=== PATIENT | female | born 1985 | race Caucasian/White ===

== ENCOUNTER → 2018-06-15 13:22 | Outpatient (CLI) | payer OTHER, MEDICAID, SELFPAY ==
--- NOTE | 2018-06-15 | DI.US.S_ITS ---
ULTRASOUND OF LEFT BREAST: 06/15/2018 CLINICAL: Palpable left breast lump x 6 weeks. No prior exams were available for comparison. Color flow and real-time ultrasound of the left breast were performed on the areas of interest. There is a 1.3 cm x 1 cm x 1.3 cm oval mass with a lobulated and indistinct margin in the left breast at 12 o'clock anterior depth. This oval mass is hypoechoic. This correlates as palpated. Color flow imaging demonstrates that there is no vascularity present. IMPRESSION: SUSPICIOUS OF MALIGNANCY - FOLLOW-UP RECOMMENDED The 1.3 cm x 1 cm x 1.3 cm oval mass in the left breast is at a low suspicion for malignancy. An ultrasound guided biopsy is recommended. The findings were discussed with the patient at the conclusion of the study by Dr. Elaine. This exam was interpreted at Station ID: [id number]. Electronically Signed By: Te pearson/:06/15/2018 14:02:24 letter sent: Biopsy Required Ultrasound BI-RADS: 4a Suspicious abnormality - low suspicion for malignancy
== END ==
PROVIDERS: PCP Nurse Practitioner; Visit Provider Nurse Practitioner
DX: N63.20 Unspecified lump in the left breast, unspecified quadrant (principal)
CPT/HCPCS: 76642

== ENCOUNTER → 2018-07-08 09:13 | Outpatient (CLI) | payer OTHER, MEDICAID, SELFPAY ==
--- NOTE | 2018-07-08 | DI.US.S_ITS ---
ULTRASOUND GUIDED BIOPSY LEFT BREAST USING VACUUM DEVICE: 07/08/2018 CLINICAL: Left breast mass. PATIENT CONSENT: Risks (minor bleeding, infection, vasovagal reaction and repeat procedure), benefits and alternatives were explained to the patient and written informed consent was obtained. Correlation is made to exam dated: 06/15/2018 [facility]. An ultrasound guided biopsy using real-time ultrasound was performed for the concerning palpable 1.3 cm x 0.9 cm x 1 cm circumscribed lobulated solid mass located in the left breast at 12 o'clock anterior depth. This was described on the previous ultrasound report. The skin was prepped in the usual manner. Local anesthetic was administered to the access site. A skin jose carlos was made in the breast. The abnormality was approached from the lateral aspect. A 13 gauge biopsy needle was placed adjacent to the abnormality under ultrasound guidance. Once the needle was documented to be in the correct location, four specimens were obtained using the Mammotome biopsy system. The patient received additional local anesthetic during the procedure. A skin closure strip was applied to the access site. The specimens were sent to the laboratory for pathological analysis. IMPRESSION: ULTRASOUND GUIDED BIOPSY BENIGN Ultrasound guided biopsy of the 1.3 cm x 0.9 cm x 1 cm solid mass in the left breast anterior depth was successful. The usual practice of placing a small biopsy localization clip at the site of the biopsy and obtaining a post-biopsy mammogram was not possible in this case. The patient declined to proceed with that portion of the procedure despite discussions with her in detail about the reasoning for clip placement. She did, however, wish to proceed with the biopsy itself. This was discussed before the biopsy procedure began, and the lesion of current concern is of a size that the remaining portion of it should be easily identifiable subsequently. It likely is a fibroadenoma by appearance. 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 This is concordant with imaging. A follow-up ultrasound in six months is recommended to demonstrate stability. These results will be communicated to the patient's ordering provider. This exam was interpreted at Station ID: [id number]. Nikos Larsen M.D. ,ecl/:07/15/2018 01:54:20
--- NOTE | 2018-07-08 | PATH_ITS ---
[facility] Accession Number: [id number] . 01 Material submitted: . LEFT BREAST MASS 12:00 . 01 Clinical history: . LEFT BREAST MASS 12:00 4 CM FROM NIPPLE . 02 Diagnosis: Left Breast Needle Core Biopsy 12 o'clock, 4 cm from the Nipple: Small fibroadenoma, negative for atypia. MRV/07/10/2018 . 02 Electronically signed: . Lucien Sanchez MD, Pathologist NPI- [id number] . 01 Gross description: . Received one formalin-filled container labeled with the patient's name and designated left breast mass 12 o'clock, 4 cm from nipple. The specimen is received with plastic filter, sample loose in container, and consists of multiple light yellow partial cylindrical shaped portions of tissue, average diameter of 0.2 to 0.3 cm and ranging in length from 0.3 to 1.8 cm. The specimen is entirely submitted in one cassette. Collection date 07/08/2018. Collection time per container 10:37 a.m. Total fixation time 12 hours up to 24. ([facility]:[id number]) /[facility] . 02 Pathologist provided ICD-10: D24.2 . 02 CPT . 092107 Performed at: 01 [facility] [address], [place], [place] [id number] MD Te Rodriguez MD Phone: [phone] Performed at: 02 [facility] [address] [place], [place] [id number] MD Perry Lu MD Phone: [phone]
== END ==
PROVIDERS: PCP Nurse Practitioner; Visit Provider Nurse Practitioner
DX: R92.8 Other abnormal and inconclusive findings on diagnostic imaging of breast (principal); N63.20 Unspecified lump in the left breast, unspecified quadrant
CPT/HCPCS: 19083

== ENCOUNTER 2019-08-13 04:16 | Emergency (ER) | payer OTHER, MEDICAID, SELFPAY ==
[2019-08-13 04:24] VITALS: BP 130/79; PULSE 56; RESP 18; TEMP 36.6; O2SAT 98
--- NOTE | 2019-08-13 04:35 | ED.ABDPAIN ---
HPI - Abdominal Pain General Chief Complaint: Abdominal Pain Stated Complaint: stomach pain anxiety poss tampon stuck Time Seen by Provider: 08/13/19 04:25 Source: patient Mode of arrival: Ambulatory Limitations: no limitations History of Present Illness HPI narrative: Patient is a 33-year-old female who presents with lower abdominal cramping which started yesterday. She has had a few episodes of diarrhea she has thrown up twice. She is also on her menstrual period and she has had some bad cramps and anxiety with that. She actually thinks she might have put 2 tampons in yesterday. She had a busy day yesterday she got . He denies any fever or chills. No one else is sick. She has been taking Midol as needed but it does not seem to be helping. She has some bad cramps last month as well but not like this and she did not have any diarrhea or vomiting. MD complaint: abdominal pain Onset (ago): day(s) Pain Consistency: constant Severity: mild Quality: cramping Radiation: none Migration to: no migration Relieving factors: nothing Exacerbating factors: nothing Related Data Home Medications Medication Instructions Recorded Confirmed sertraline 25 mg tablet 25 mg PO DAILY 07/06/18 07/06/18 Previous Rx's Medication Instructions Recorded ondansetron 4 mg PO Q8H PRN #10 tab 08/13/19 ondansetron 4 mg PO Q8H PRN #10 tab 08/13/19 Allergies Allergy/AdvReac Type Severity Reaction Status Date / Time morphine [MORPHINE] AdvReac Mild Verified 08/13/19 04:27 Review of Systems Review of Systems Narrative: GENERAL: Denies chills, fatigue, malaise, fever, sweats, travel HEENT: Denies sinus pain, ear pain, sore throat, difficulty swallowing, neck pain RESPIRATORY: Denies dyspnea, cough, wheezing, hemoptysis, sputum. CARDIOVASCULAR: Denies chest pain, palpitations, orthopnea, edema GASTROINTESTINAL: See HPI : Denies dysuria, frequency, incontinence, hematuria, urinary retention, flank pain. MUSCULOSKELETAL: Denies weakness, joint pain, or bony pain SKIN: No rash, no erythema, no pruritus NEUROLOGIC: Denies weakness, dizziness, headache, numbness, change in speech, confusion PSYCHIATRIC: No concerning psychosocial issues. 12 point review of systems is negative except for those stated above and HPI [facility] Medical History Anxiety (Acute) Family History Mother Hypertension Grandfather Heart disease Stroke Family/Other Heart disease Diabetes mellitus Stroke Family/Other Cancer Social History (Updated 08/13/19 @ 04:38 by Sara Waddell DO) marital status: household members: spouse occupational status: employed Smoking Status: Never smoker alcohol intake: current substance use type: does not use Family History Mother Hypertension Grandfather Heart disease Stroke Family/Other Heart disease Diabetes mellitus Stroke Family/Other Cancer Social History marital status: household members: spouse occupational status: employed Smoking Status: Never smoker alcohol intake: current substance use type: does not use Exam Initial Vital Signs Initial Vital Signs: Vital Signs Temperature 97.9 F 08/13/19 04:24 Pulse Rate 56 L 08/13/19 04:24 Respiratory Rate 18 08/13/19 04:24 Blood Pressure 130/79 08/13/19 04:24 Pulse Oximetry 98 08/13/19 04:24 GENERAL: Well-appearing, well-nourished and in no acute distress. HEENT: Head atraumatic,EOMI, pupils reactive, face symmetric, moist mucous membranes CARDIOVASCULAR: Regular rate and rhythm without murmurs, rubs or gallops. RESPIRATORY: Breath sounds equal bilaterally, no wheezes rales or rhonchi. ABDOMEN: Soft, mild lower abdominal pain, no localization no guarding rebound PELVIC: External genitalia is normal, no vaginal bleeding, no vaginal discharge, no odor, cervical os is closed, no adnexal tenderness. no tampon or other foreign body found EXTREMITIES: Normal range of motion, no clubbing or edema. Neurovascularly intact NEUROLOGICAL: Alert and oriented x4.Normal gait and speech. Cranial nerves II through XII grossly intact. SKIN: Warm, dry, no laceration, no petechiae, no rashes or lesions. Course Orders Ordered: ED Orders 08/13/19 04:35 Complete Blood Count AUTO DIFF Stat Comprehensive Metabolic Panel Stat Lipase Stat Discontinued Medications Acetaminophen (Tylenol) 975 mg PO NOW ONE Stop: 08/13/19 05:15 Last Admin: 08/13/19 05:19 Dose: 975 mg Documented by: PHILIPPE Ketorolac Tromethamine (Toradol) 30 mg IV NOW ONE Stop: 08/13/19 04:35 Last Admin: 08/13/19 04:47 Dose: 30 mg Documented by: PHILIPPE Ondansetron HCl (Zofran) 4 mg IV NOW ONE Stop: 08/13/19 04:35 Last Admin: 08/13/19 04:47 Dose: 4 mg Documented by: PHILIPPE Vital Signs Vital signs: Vital Signs - 8 hr 08/13/19 04:24 08/13/19 06:03 Temperature 97.9 F 98.4 F Pulse Rate 56 L 68 Respiratory Rate 18 16 Blood Pressure 130/79 122/57 L Pulse Oximetry 98 99 MDM - Abdominal Pain Lab Data Attestation: I reviewed the patient's lab results. Result diagrams: 08/13/19 04:35 08/13/19 04:35 Labs: Lab Results 08/13/19 08/13/19 Range/Units 04:35 04:35 WBC 4.8 (4.5-11.0) X10^3/uL RBC 4.21 (4.0-5.2) X10^6/uL Hgb 13.4 (12.0-16.0) g/dL Hct 39.4 (36-46) % MCV 93.5 (80-100) fL MCH 31.9 (26-34) PG MCHC 34.1 (30-36) % RDW 13.4 (11.6-14.8) % Plt Count 264 (150-400) X10^3/uL Neut % (Auto) 41.2 L (50-75) % Lymph % (Auto) 46.7 H (25-40) % [place] % (Auto) 6.6 (3-14) % Eos % (Auto) 4.9 H (2-4) % Baso % (Auto) 0.6 (0-2) % Neut # (Auto) 2000 (4887-9550) /uL Lymph # (Auto) 2200 (7150-6892) /uL [place] # (Auto) 300 (0-900) /uL Eos # (Auto) 200 (0-450) /uL Baso # (Auto) 0 (0-100) /uL Sodium 141 (137-145) mmol/L Potassium 4.0 (3.4-5.1) mmol/L Chloride 101 (98-107) mmol/L Carbon Dioxide 26 (22-32) mmol/L BUN 11 (7-17) mg/dL Creatinine 0.70 (0.52-1.04) mg/dL Estimated GFR > 60.0 (>60) mL/min BUN/Creatinine Ratio 15.7 (6-22) Glucose 90 (70-100) mg/dL Calcium 10.1 (8.4-10.2) mg/dL Total Bilirubin 0.5 (0.2-1.3) mg/dL AST 39 H (14-36) IU/L ALT 18 (9-52) IU/L Alkaline Phosphatase 65 (38-126) U/L Total Protein 8.1 (6.3-8.2) g/dL Albumin 4.7 (3.5-5.0) g/dL Globulin 3.4 (1.7-4.1) g/dL Albumin/Globulin Ratio 1.4 (1.0-2.8) Lipase 96 (23-300) U/L Point of care testing: Point of Care Testing Test Results Negative Urine Dip Bedside Urine Glucose Negative Bedside Urine Bilirubin - Negative Bedside Urine Ketone - Negative Urine Specific [place] 1.025 Bedside Urine Occult Blood - Negative Bedside Urine pH 5.5 Bedside Urine Protein - Negative Bedside Urine Urobilinogen - Negative Bedside Urine Nitrite - Negative Bedside Urine Leukocytes - Negative Esterase MDM Narrative Medical decision making narrative: Patient pain slightly improved. At this time no need for imaging. No tampon is found. Patient has diarrhea and nausea vomiting symptoms consistent with gastroenteritis. Discharge Plan Departure Patient Disposition: Home Clinical Impression: Gastroenteritis Discharge Date/Time: 08/13/19 06:04 Instructions: DI for Viral Gastroenteritis -- Adult Activity Restrictions/Additional Instructions: *You have been diagnosed with gastroenteritis *What to do: Increase fluid as tolerated. *Continue to take medications as directed Ibuprofen 800 mg every 8 hours if needed for pain Zofran 4 mg every 8 hours if needed for nausea or vomiting *Follow up with your primary care provider in 2-3 days *Return to ER if you should have increasing abdominal pain, heavy bleeding more than 1 super pad or tampon an hours or any new, worsening or concerning symptoms Prescriptions: New ondansetron 4 mg tablet,disintegrating 4 mg PO Q8H PRN (Reason: nausea and vomiting) Qty: 10 RF: 0 ondansetron 4 mg tablet,disintegrating 4 mg PO Q8H PRN (Reason: nausea and vomiting) Qty: 10 RF: 0 No Action sertraline [Zoloft] 25 mg tablet 25 mg PO DAILY RF: 0 Referrals: Beata Wagner [Primary Care Provider] -
[2019-08-13] MEDS: ONDANSETRON 4 MG/2 ML INJ IV (04:47)
[2019-08-13] MEDS: KETOROLAC 60 MG/2 ML VIAL 30 MG IV (04:47)
[2019-08-13 04:50] LABS: Add Manual Diff / Slide Review NO; Basophils Absolute Auto 0 /uL (0-100); Basophils Percent Auto 0.6 % (0-2); Eosinophils Absolute Auto 200 /uL (0-450); Eosinophils Percent Auto 4.9 % (2-4); Hematocrit 39.4 % (36-46); Hemoglobin 13.4 g/dL (12.0-16.0); Lymphocytes Absolute Auto 2200 /uL (1100-4500); Lymphocytes Percent Auto 46.7 % (25-40); Mean Corpuscular HGB Conc 34.1 % (30-36); Mean Corpuscular Hemoglobin 31.9 PG (26-34); Mean Corpuscular Volume 93.5 fL (80-100); Monocytes Absolute Auto 300 /uL (0-900); Monocytes Percent Auto 6.6 % (3-14); Neutrophils Absolute Auto 2000 /uL (1500-7000); Neutrophils Percent Auto 41.2 % (50-75); Platelet Count 264 X10^3/uL (150-400); Red Blood Cell Count 4.21 X10^6/uL (4.0-5.2); Red Cell Distribution Width 13.4 % (11.6-14.8); White Blood Cell Count 4.8 X10^3/uL (4.5-11.0)
[2019-08-13 04:59] LABS: Alanine Aminotransferase 18 IU/L (9-52); Albumin 4.7 g/dL (3.5-5.0); Albumin Globulin Ratio 1.4 (1.0-2.8); Alkaline Phosphatase 65 U/L (38-126); Aspartate Aminotransferase 39 IU/L (14-36); BUN Creatinine Ratio 15.7 (6-22); Bilirubin Total 0.5 mg/dL (0.2-1.3); Blood Urea Nitrogen 11 mg/dL (7-17); Calcium 10.1 mg/dL (8.4-10.2); Carbon Dioxide 26 mmol/L (22-32); Chloride 101 mmol/L (98-107); Estimated Glomerular Filt Rate > 60.0 mL/min (>60); Globulin 3.4 g/dL (1.7-4.1); Glucose 90 mg/dL (70-100); HEMOLYSIS < 15 (0-50); Lipase 96 U/L (23-300); Sodium 141 mmol/L (137-145); Total Protein 8.1 g/dL (6.3-8.2)
[2019-08-13] MEDS: ACETAMINOPHEN 325 MG TABLET 975 MG PO (05:19)
[2019-08-13 06:03] VITALS: BP 122/57; PULSE 68; RESP 16; TEMP 36.9; O2SAT 99
== END 2019-08-13 06:04 | disposition home or self-care (01) ==
PROVIDERS: Emergency Provider Emergency Medicine; PCP Nurse Practitioner
DX: K52.9 Noninfective gastroenteritis and colitis, unspecified (principal)
CPT/HCPCS: 80053; 81003; 81025; 83690; 85025; 96374; 96375; 99282; 99284; J1885; J2405

== ENCOUNTER → 2019-11-03 10:42 | Outpatient (CLI) | payer OTHER, SELFPAY ==
--- NOTE | 2019-11-03 10:46 | DI.RAD.S_ITS ---
PROCEDURE: XR CHEST 2V INDICATIONS: chest pain TECHNIQUE: 2 views of the chest were acquired. COMPARISON: None. FINDINGS: Surgical changes and devices: None. Lungs and pleura: Lungs are clear. No pleural effusions or pneumothorax. Mediastinum: Mediastinal contours are normal. Heart size is normal. Bones and chest wall: No suspicious bony abnormalities. Soft tissues appear unremarkable. IMPRESSION: Negative chest. No acute cardiopulmonary process is evident. Dictated by: Ronal Colin M.D. on 11/03/2019 at 10:33 Approved by: Ronal Colin M.D. on 11/03/2019 at 10:34
[2019-11-03 10:55] LABS: Bacteria Urine None Seen; RBC Urine None Seen (0-5/HPF); WBC Urine None Seen (0-5/HPF)
[2019-11-03 11:42] LABS: Hemoglobin 13.3 g/dL (12.0-16.0); Mean Corpuscular HGB Conc 34.2 % (30-36); Mean Corpuscular Hemoglobin 32.4 PG (26-34); Platelet Count 289 X10^3/uL (150-400); Red Blood Cell Count 4.11 X10^6/uL (4.0-5.2); Red Cell Distribution Width 13.1 % (11.6-14.8); White Blood Cell Count 4.1 X10^3/uL (4.5-11.0)
[2019-11-03 11:57] LABS: Alanine Aminotransferase 13 IU/L (<35); Albumin 5.1 g/dL (3.5-5.0); Albumin Globulin Ratio 1.5 (1.0-2.8); Alkaline Phosphatase 64 U/L (38-126); Aspartate Aminotransferase 30 IU/L (14-36); BUN Creatinine Ratio 17.1 (6-22); Bilirubin Total 0.6 mg/dL (0.2-1.3); Blood Urea Nitrogen 12 mg/dL (7-17); Calcium 9.8 mg/dL (8.4-10.2); Carbon Dioxide 28 mmol/L (22-32); Chloride 101 mmol/L (98-107); Cholesterol 193 mg/dL (140-199); Creatine Kinase 61 U/L (30-135); Estimated Glomerular Filt Rate > 60.0 mL/min (>60); Globulin 3.3 g/dL (1.7-4.1); Glucose 87 mg/dL (70-100); HDL Cholesterol 76 mg/dL (40-60); HEMOLYSIS < 15 (0-50); LDL Cholesterol Calculated 92 mg/dL (<100); Potassium 4.2 mmol/L (3.4-5.1); Sodium 139 mmol/L (137-145); Total Protein 8.4 g/dL (6.3-8.2); Triglycerides 126 mg/dL (35-150)
[2019-11-03 12:09] LABS: Troponin I < 0.012 ng/mL (0.01-0.034)
[2019-11-03 12:14] LABS: Free T3, Triiodothyronine Free 3.53 pg/mL (2.77-5.27); Free T4, Direct Thyroxine 0.92 ng/dL (0.78-2.19)
[2019-11-03 12:27] LABS: Thyroid Stimulating Hormone 1.12 uIU/mL (0.47-4.68)
[2019-11-03 12:45] LABS: Appearance Urine UA CLEAR; Bilirubin Urine UA NEGATIVE (NEGATIVE); Color Urine UA YELLOW; Glucose Urine UA NEGATIVE (Negative); Ketones Urine UA NEGATIVE (NEGATIVE); Leukocyte Esterase Urine UA NEGATIVE (NEGATIVE); Nitrite Urine UA NEGATIVE (Negative); Occult Blood Urine UA NEGATIVE (Negative); Protein Urine UA NEGATIVE (Negative); Specific Gravity Urine UA <=1.005 (1.000-1.035); Urobilinogen Urine UA 0.2 E.U./dL (0.2)
[2019-11-03 12:54] LABS: Amorphous Sediment Urine 1+; Culture Indicated Urine Cult Not Indicated; Squamous Epithelial Cell Urine 0-1 /HPF (0-5/HPF)
== END ==
PROVIDERS: PCP Nurse Practitioner; Visit Provider Nurse Practitioner
DX: R07.9 Chest pain, unspecified (principal); F32.9 Major depressive disorder, single episode, unspecified; F41.9 Anxiety disorder, unspecified; J34.89 Other specified disorders of nose and nasal sinuses
CPT/HCPCS: 36415; 71046; 80053; 80061; 81001; 82550; 84439; 84443; 84481; 84484; 85027

== ENCOUNTER → 2019-12-01 07:22 | Outpatient (CLI) | payer OTHER, SELFPAY ==
--- NOTE | 2019-12-01 08:19 | PM.TREADMILL ---
Cardiac Stress Test Report Referral & Results Date Patient Seen: 12/01/19 Time Patient Seen: 08:00 Requesting provider: Gloria Allen Indication: Bradycardia, chest pain Rest ECG: Sinus Bradycardia Procedure Note: Today following both written and verbal informed consent, the patient was exercised according to a standard Patricio protocol. The patient exercised for a total of 10 minutes 19 seconds achieving a maximum heart rate of 136. Patient's maximum systolic blood pressure was 125. This was an estimated 12.8 METs. Patient was hypotensive and bradycardic at rest. Normal hemodynamic response to exercise, though target heart rate was not reached for the patient to stop. Occasional PVCs/PACs during exercise, but no other change in rhythm. No signs or symptoms of angina. TEMITOPE +10% on active scale. Note that significant artifact in precordial leads interfered with automated calculation of ST deviations; there were no observed ST deviations in the live feed. Patient return to bradycardiac heart rate within a minute of rest. Impression: Low probability for ischemia. Bradycardic and hypotensive at rest, but normal response to exercise. Please note: Actual ECG tracings can be found in the PACS system.
== END ==
PROVIDERS: PCP Nurse Practitioner; Visit Provider Nurse Practitioner
DX: R00.1 Bradycardia, unspecified (principal); R07.9 Chest pain, unspecified
CPT/HCPCS: 93016; 93017; 93018

== ENCOUNTER → 2019-12-03 07:59 | Outpatient (CLI) | payer OTHER, SELFPAY ==
--- NOTE | 2019-12-03 08:00 | DI.ECHO.S_ITS ---
[place] +---------+ : : [address] : : : : [id number] : : : : Phone: [phone] Echocardiogram Report + + :Name: LACIE RODRÍGUEZ Study Date: 12/03/2019 Height: 63 in : :[facility] Weight: 127 lb: : Gender: Female BSA: 1.6 m2 : :: 1985 Age: 34 yrs : :Reason For Study: Bradycardia, Bulimia nervosa, Anorexia : : Performed By: Rebecca Hairston : :Referring: GILSON JJ : + + Interpretation Summary Normal echo study. Procedure: A two-dimensional transthoracic echocardiogram with color flow and Doppler was performed. The study quality was technically good. There is no prior echocardiogram noted for this patient. The patient was in sinus bradycardia with heart rates between 35-48 bpm during the exam. Left Ventricle: The left ventricle is normal in size, wall thickness, and systolic function without any focal wall motion abnormalities. There is no ventricular septal defect visualized. The ejection fraction is estimated to be 55-60%. Diastolic parameters suggest probable normal left ventricular diastolic function and normal filling pressures. Right Ventricle: The right ventricle is normal in size and function. Atria: The left atrial size is normal. Right atrial size is normal. There is no Doppler evidence for an interatrial shunt. Mitral Valve: The mitral valve is normal in structure and function. There is trace mitral regurgitation. Aortic Valve: The aortic valve is normal in structure and function. No aortic regurgitation is present. Tricuspid Valve: The tricuspid valve is normal in structure and function. There is a trace or physiologic amount of tricuspid regurgitation. The right ventricular systolic pressure is estimated to be at least 30 mmHg based on an estimated right atrial pressure of 8 mm Hg. Pulmonic Valve: The pulmonic valve is not well seen, but is grossly normal. There is a trace or physiologic amount of pulmonic regurgitation. Great Vessels: The aortic root is normal size. The ascending aorta is normal in size. The aortic arch is normal in size. The IVC is dilated (diameter is greater than 2.1 cm) yet it collapses greater than 50% with a sniff. This suggests a right atrial pressure of 8 mm Hg. Pericardium/ Pleura There is no pericardial effusion. MMode/2D Measurements & Calculations LVIDd: 5.0 cm LVOT diam: 1.9 cm LVIDs: 3.0 cm Ao root diam: 2.5 cm FS: 39.0 % Aortic Jxn: 2.3 cm EPSS: 0.18 cm asc Aorta Diam: 2.8 cm IVSd: 0.55 cm Ao Arch Diam (Prox Trans): 2.2 cm LVPWd: 0.71 cm LV price. diameter/BSA (cm/m^2): 3.1 LV sys. diameter/BSA (cm/m^2): 1.9 LA A2 area: 20.6 cm2 RA long axis: 4.9 cm LA A4 area: 18.3 cm2 RA area: 17.2 cm2 LA length (vol): 4.7 cm RA vol: 50.9 ml LA vol: 68.1 ml RA : 31.9 ml/m2 LA vol index: 42.7 ml/m2 IVC diam: 2.3 cm RVD1 (basal): 3.5 cm RVD2 (mid): 2.7 cm TAPSE: 3.2 cm Doppler Measurements & Calculations Ao V2 max: 124.6 cm/sec LVOT Max Denny: 89.4 cm/sec Ao V2 mean: 81.9 cm/sec LV V1 max P.2 mmHg Ao max P.2 mmHg LV V1 VTI: 21.7 cm Ao mean P.1 mmHg JUSTA(I,D): 1.8 cm2 Ao V2 VTI: 32.1 cm JUSTA(V,D): 2.0 cm2 sev ratio: 0.68 JUSTA indexed to BSA (cm^2/m^2): 1.2 MV E max denny: 102.7 cm/sec TR max denny: 237.9 cm/sec MV A max denny: 34.0 cm/sec TR max P.6 mmHg MV E/A: 3.0 PA V2 max: 84.2 cm/sec Med Peak E' Denny: 14.2 cm/sec PA V2 mean: 56.5 cm/sec E/E' med: 7.2 PA mean P.5 mmHg Lat Peak E' Denny: 18.8 cm/sec PA Accel Time: 0.17 sec E/E' lat: 5.5 E/e' average: 6.3 MV dec time: 0.23 sec MV P1/2t: 68.4 msec MV P1/2t max denny: 102.6 cm/sec SV(LVOT): 59.3 ml MVA(P1/2t): 3.2 cm2 Electronically signed by: Jorge Alberto Abebe on Reading Physician:12/03/2019 03:21 PM
== END ==
PROVIDERS: PCP Nurse Practitioner; Visit Provider Nurse Practitioner
DX: R00.1 Bradycardia, unspecified (principal); R07.9 Chest pain, unspecified; F50.2 Bulimia nervosa
CPT/HCPCS: C8929

== ENCOUNTER → 2019-12-31 08:45 | Outpatient (CLI) | payer OTHER, SELFPAY ==
--- NOTE | 2019-12-31 08:46 | DI.CT.S_ITS ---
PROCEDURE: CT SINUS SCREEN WO CON INDICATIONS: phantom smell TECHNIQUE: Noncontrast 3.0 mm axial images acquired from the frontal sinuses to the mid-sella, with coronal and sagittal reformats. For radiation dose reduction, the following was used: automated exposure control, adjustment of mA and/or kV according to patient size. COMPARISON: None. FINDINGS: Image quality: Excellent. Maxillary Sinuses: There is complete opacification seen of the right maxillary sinus. Medial wall of the right maxillary sinus is highly demineralized and is bowed medially. The left maxillary sinus appears clear. Ethmoid Air Cells: No bony remodeling or destruction. Sinuses are clear. Sphenoid Sinuses: No bony remodeling or destruction. Sinuses are clear. Frontal Sinuses: No bony remodeling or destruction. Sinuses are clear. Ostiomeatal Complexes: The right ostiomeatal complex is occluded. The left ostiomeatal complex is patent. Miscellaneous: Visualized intra-orbital contents are normal. No en bullosa or paradoxical turbinate curvature. There is S-shaped nasal septal deviation. IMPRESSION: Focal right maxillary sinus disease, with complete opacification. The medial wall of the right maxillary sinus is highly demineralized and is bowed medially. S-shaped nasal septal deviation can be seen. The right ostiomeatal complex is completely opacified. Dictated by: Rico Emery M.D. on 12/31/2019 at 9:15 Approved by: Rico Emery M.D. on 12/31/2019 at 9:17
== END ==
PROVIDERS: PCP Nurse Practitioner; Referring Provider Nurse Practitioner; Visit Provider Nurse Practitioner
DX: R44.2 Other hallucinations (principal); J32.0 Chronic maxillary sinusitis; J34.2 Deviated nasal septum
CPT/HCPCS: 70486

== ENCOUNTER → 2020-04-14 13:42 | Outpatient (CLI) | payer OTHER, SELFPAY ==
--- NOTE | 2020-04-14 13:44 | DI.US.S_ITS ---
LIMITED ULTRASOUND OF LEFT BREAST: 04/14/2020 CLINICAL: Follow up left breast mass previously biopsied. Comparison is made to exams dated: 07/08/2018 ultrasound biopsy and 06/15/2018 [facility]. Color flow and real-time ultrasound of the left breast 12 o'clock region were performed. Ramachandran scale images of the real-time examination were reviewed. There is a benign, biopsy-proven 1.2 cm x 0.6 cm x 1.3 cm oval fibroadenoma with a non-circumscribed margin in the left breast at 12 o'clock middle depth 4 cm from the nipple. This oval fibroadenoma is hypoechoic. This abnormality is not significantly changed. Color flow imaging demonstrates that there is no vascularity present. IMPRESSION: BENIGN There is no sonographic evidence of malignancy. The 1.2 cm x 0.6 cm x 1.3 cm oval fibroadenoma in the left breast is benign. Clinical follow up is recommended if the patient notices this mass grows significantly, otherwise annual mammogram screening beginning at age 40 is recommended. Findings and recommendations were conveyed to the patient at time of exam. This exam was interpreted at Station ID: [id number]. Electronically Signed By: Kathy stovall/:04/14/2020 15:16:37 letter sent: Normal Exam Ultrasound BI-RADS: 2 Benign
== END ==
PROVIDERS: PCP Nurse Practitioner; Referring Provider Nurse Practitioner; Visit Provider Nurse Practitioner
DX: R92.8 Other abnormal and inconclusive findings on diagnostic imaging of breast (principal); D24.2 Benign neoplasm of left breast
CPT/HCPCS: 76642

== ENCOUNTER → 2021-12-25 11:49 | Outpatient (CLI) | payer SELFPAY ==
[2021-12-25 14:06] LABS: Urine N gonorrhoeae NOT DETECTED
[2021-12-25 14:19] LABS: Urine Chlamydia NOT DETECTED
[2021-12-26 05:58] LABS: RPR Screen Non Reactive (Non Reactive)
[2021-12-26 06:35] LABS: HSV 2 IGG AB < 0.91 index (0.00-0.90); HSV1IGG > 62.20 index (0.00-0.90)
[2021-12-26 18:10] LABS: HSV I/II IgM <0.91 Ratio (0.00-0.90)
[2021-12-26 19:14] LABS: Hepatitis B Surface Antigen NEGATIVE s/c (NEGATIVE)
[2021-12-26 19:42] LABS: HIV 1 & 2 Ab/Ag 4th Gen Combo NEGATIVE (NEGATIVE); Hep C Virus Ab w/Reflex Quant NEGATIVE s/c (NEGATIVE)
== END ==
PROVIDERS: PCP Nurse Practitioner; Referring Provider Nurse Practitioner; Visit Provider Nurse Practitioner
DX: Z11.3 Encounter for screening for infections with a predominantly sexual mode of transmission (principal)
CPT/HCPCS: 36415; 86592; 86694; 86695; 86696; 86803; 87340; 87389; 87491; 87591

== ENCOUNTER → 2022-01-10 12:09 | Outpatient (CLI) | payer OTHER, SELFPAY ==
--- NOTE | 2022-01-10 12:11 | DI.RAD.S_ITS ---
PROCEDURE: XR FOREARM LT 2V INDICATIONS: L I wrist/forearm pain TECHNIQUE: 2 views of the forearm were acquired. COMPARISON: [facility], CR, XR WRIST LT MIN 3V, 01/10/2022, 12:08. FINDINGS: Bones: No fractures or dislocations. No suspicious bony lesions. Soft tissues: No suspicious soft tissue calcifications or masses. IMPRESSION: No significant abnormality of the form can be seen by plain film. Dictated by: Rico Emery M.D. on 01/10/2022 at 11:26 Approved by: Rico Emery M.D. on 01/10/2022 at 11:27
--- NOTE | 2022-01-10 12:11 | DI.RAD.S_ITS ---
PROCEDURE: XR WRIST LT MIN 3V INDICATIONS: L I wrist/forearm pain TECHNIQUE: 4 views of the wrist were acquired. COMPARISON: [facility], CR, XR FOREARM LT 2V, 01/10/2022, 12:08. FINDINGS: Bones: No fractures or dislocations. No suspicious bony lesions. Note is made of negative ulnar variance. This can predispose to development of AVN of the lunate. However, no findings of AVN of the lunate are seen on these plain films. Scaphoid view: No navicular fractures are seen. Soft tissues: No suspicious soft tissue calcifications. IMPRESSION: No significant plain film abnormality can be seen. Dictated by: Rico Emery M.D. on 01/10/2022 at 11:25 Approved by: Rico Emery M.D. on 01/10/2022 at 11:26
== END ==
PROVIDERS: PCP Nurse Practitioner; Referring Provider Nurse Practitioner Family; Visit Provider Nurse Practitioner Family
DX: S56.912A Strain of unspecified muscles, fascia and tendons at forearm level, left arm, initial encounter (principal); S66.912A Strain of unspecified muscle, fascia and tendon at wrist and hand level, left hand, initial encounter; X58.XXXA Exposure to other specified factors, initial encounter
CPT/HCPCS: 73090; 73110

== ENCOUNTER 2022-11-21 15:44 | Emergency (ER) | payer OTHER, SELFPAY ==
[2022-11-21 15:44] VITALS: BP 122/83; PULSE 75; RESP 18; TEMP 36.6; O2SAT 98; BMI 23.0
[2022-11-21 16:08] LABS: COVID19 -Nasal RAPID POSITIVE (Negative)
[2022-11-21] MEDS: ONDANSETRON 4 MG/2 ML INJ IV ×2 (16:09→19:32)
[2022-11-21 16:20] LABS: Add Manual Diff / Slide Review NO; Basophils Absolute Auto 0 /uL (0-100); Basophils Percent Auto 0.6 % (0-2); Eosinophils Absolute Auto 0 /uL (0-450); Eosinophils Percent Auto 0.1 % (2-4); Hematocrit 41.6 % (36-46); Hemoglobin 14.3 g/dL (12.0-16.0); Lymphocytes Absolute Auto 1300 /uL (1100-4500); Lymphocytes Percent Auto 26.6 % (25-40); Mean Corpuscular HGB Conc 34.4 % (30-36); Mean Corpuscular Hemoglobin 33.8 PG (26-34); Mean Corpuscular Volume 98.3 fL (80-100); Monocytes Absolute Auto 400 /uL (0-900); Monocytes Percent Auto 9.2 % (3-14); Neutrophils Absolute Auto 3100 /uL (1500-7000); Neutrophils Percent Auto 63.5 % (50-75); Platelet Count 107 X10^3/uL (150-400); Red Blood Cell Count 4.23 X10^6/uL (4.0-5.2); Red Cell Distribution Width 14.9 % (11.6-14.8); White Blood Cell Count 4.8 X10^3/uL (4.5-11.0)
[2022-11-21 16:33] LABS: Alanine Aminotransferase 110 IU/L (<35); Albumin Globulin Ratio 1.2 (1.0-2.8); Alkaline Phosphatase 117 U/L (38-126); Aspartate Aminotransferase 141 IU/L (14-36); BUN Creatinine Ratio 13.9 (6-22); Bilirubin Total 0.8 mg/dL (0.2-1.3); Blood Urea Nitrogen 11 mg/dL (7-17); Calcium 10.1 mg/dL (8.4-10.2); Carbon Dioxide 27 mmol/L (22-32); Chloride 93 mmol/L (98-107); Estimated Glomerular Filt Rate > 60 mL/min (>60); Globulin 4.2 g/dL (1.7-4.1); Glucose 125 mg/dL (70-100); HEMOLYSIS < 15 (0-50); Lipase 98 U/L (23-300); Potassium 3.5 mmol/L (3.4-5.1); Sodium 137 mmol/L (137-145); Total Protein 9.2 g/dL (6.3-8.2)
[2022-11-21 16:45] LABS: Amorphous Sediment Urine 2+; RBC Urine None Seen (0-5/HPF); Squamous Epithelial Cell Urine 5-10 /HPF (0-5/HPF); WBC Urine 0-1/HPF (0-5/HPF)
[2022-11-21 16:46] LABS: Bacteria Urine None Seen; Culture Indicated Urine Cult Not Indicated
--- NOTE | 2022-11-21 19:26 | ED_ITS ---
HPI - Nausea/Vomiting/Diarrhea General Chief complaint: Nausea/Vomiting/Diarrhea Stated complaint: covid , vomting Time Seen by Provider: 11/21/22 18:44 Source: patient Mode of arrival: Ambulatory History of Present Illness HPI Narrative: Patient is a 36-year-old female who earlier this week starting having headache and fevers. She tested for COVID at home and it was positive. Today she started to have vomiting. She continues to have the other symptoms as well. Related Data Previous Rx's Medication Instructions Recorded ondansetron 4 mg disintegrating 4 mg PO Q8H PRN nausea and 12/12/21 tablet vomiting #20 tabs gabapentin 100 mg capsule 100 mg PO BEDTIME #180 caps 12/25/21 valacyclovir 1 gram tablet 1,000 mg PO BID #20 tabs 12/25/21 bupropion HCl 300 mg 24 hr tablet, 300 mg PO QAM #90 tabs 01/08/22 extended release bupropion HCl 150 mg 24 hr tablet, 150 mg PO QAM #30 tabs 02/07/22 extended release gabapentin 300 mg capsule 300 mg PO TID PRN anxiety #90 caps 02/07/22 hydroxyzine HCl 25 mg tablet 25 mg PO QID PRN anxiety #120 tabs 02/07/22 trazodone 50 mg tablet 100 mg PO BEDTIME PRN insomnia #60 02/07/22 tabs naltrexone microspheres 380 mg 380 mg IM Q4W #1 ea 03/27/22 intramuscular suspension,extended release Allergies Allergy/AdvReac Type Severity Reaction Status Date / Time morphine [MORPHINE] AdvReac Mild Verified 12/25/21 10:44 Review of Systems Constitutional Constitutional: Reports system reviewed and no additional complaints, except as documented ENT Ears, Nose, Mouth, and Throat: Reports system reviewed and no additional complaints, except as documented Respiratory Respiratory: Reports system reviewed and no additional complaints, except as documented Gastrointestinal Gastrointestinal: Reports system reviewed and no additional complaints, except as documented Integumentary/Breasts Skin/Breast: Reports system reviewed and no additional complaints, except as documented Patient History Medical History Acute bacterial sinusitis Alcohol use disorder, mild, in early remission Anorexia Anxiety Breast lump Bulimia Chronic pain of left knee Chronic right maxillary sinusitis Costochondral chest pain Dental caries Depression Depression with anxiety Dermoid cyst of left ovary Epistaxis Fatigue Fibroadenoma Ganglion cyst Generalized anxiety disorder Gingival erythema Hair loss Hallux valgus Headache Insomnia Insomnia Insomnia related to another mental disorder Leukopenia Menstrual pain Muscle spasms of neck Nasal septal deviation Normocytic anemia Palpitations Panic disorder without agoraphobia Phantosmia Vision disorder Vitamin D deficiency Surgical History Anesthesia History of removal of ovarian cyst (~09/2017) Family History Mother Hypertension Grandfather Heart disease Stroke Family/Other Heart disease Diabetes mellitus Stroke Family/Other Cancer Grandmother Alzheimer's disease Grandfather Diabetes mellitus Heart disease Stroke Social History marital status: household members: spouse occupational status: employed Smoking Status: Never smoker alcohol intake: current substance use type: does not use Smoking Status: Never smoker alcohol intake frequency: a few times a month Substance Use Type: marijuana Exam Initial Vital Signs Initial Vital Signs: Vital Signs Temperature 97.9 F 11/21/22 15:44 Pulse Rate 75 11/21/22 15:44 Respiratory Rate 18 11/21/22 15:44 Blood Pressure 122/83 11/21/22 15:44 Pulse Oximetry 98 11/21/22 15:44 Oxygen Delivery Method 11/21/22 15:44 HENMT Head: normal to inspection and normocephalic Resp Effort & Inspection: normal respiratory effort Auscultation: clear to auscultation bilaterally Cardio Rate: regular rate Skin General: no rashes or lesions noted Neuro General: patient alert, patient awake and moves all extremities Course Orders Ordered: ED Orders 11/21/22 15:55 COVID19 -Nasal RAPID/Pre-Proc Stat 11/21/22 16:07 Complete Blood Count AUTO DIFF Stat Comprehensive Metabolic Panel Stat Lipase Stat 11/21/22 16:31 Urine Microscopic Stat Discontinued Medications Sodium Chloride (Normal Saline 0.9%) 1,000 mls @ 1,000 mls/hr IV BOLUS ONE Stop: 11/21/22 20:16 Last Infusion: 11/21/22 20:30 Dose: 0 mls/hr Documented By: Admin: 11/21/22 19:27 Dose: 1,000 mls/hr Documented By: JASWANT Ondansetron HCl (Ondansetron 4 Mg Odt) 4 mg PO NOW PRN PRN Reason: Nausea And Vomiting Ondansetron HCl (Ondansetron 4 Mg/2 Ml Inj) 4 mg IV NOW PRN PRN Reason: Nausea And Vomiting Last Admin: 11/21/22 16:09 Dose: 4 mg Documented By: RIO Ondansetron HCl (Ondansetron 4 Mg/2 Ml Inj) 4 mg IV NOW ONE Stop: 11/21/22 19:28 Last Admin: 11/21/22 19:32 Dose: 4 mg Documented By: JASWANT Ondansetron HCl (Ondansetron 4 Mg Odt Prepack) 1 bottle MISC SEEINSTR ONE Stop: 11/21/22 20:38 Last Admin: 11/21/22 20:48 Dose: 1 bottle Documented By: AT Vital Signs Vital signs: Vital Signs - 8 hr 11/21/22 15:44 Temperature 97.9 F Pulse Rate 75 Respiratory Rate 18 Blood Pressure 122/83 Pulse Oximetry 98 Oxygen Delivery Method Room Air MDM - Nausea/Vomiting/Diarrhea Lab Data Result diagrams: 11/21/22 16:07 11/21/22 16:07 Labs: Lab Results 11/21/22 11/21/22 11/21/22 Range/Units 15:55 16:07 16:07 WBC 4.8 (4.5-11.0) X10^3/uL RBC 4.23 (4.0-5.2) X10^6/uL Hgb 14.3 (12.0-16.0) g/dL Hct 41.6 (36-46) % MCV 98.3 (80-100) fL MCH 33.8 (26-34) PG MCHC 34.4 (30-36) % RDW 14.9 H (11.6-14.8) % Plt Count 107 L (150-400) X10^3/uL Neut % (Auto) 63.5 (50-75) % Lymph % (Auto) 26.6 (25-40) % [place] % (Auto) 9.2 (3-14) % Eos % (Auto) 0.1 L (2-4) % Baso % (Auto) 0.6 (0-2) % Neut # (Auto) 3100 (7961-5737) /uL Lymph # (Auto) 1300 (9643-5443) /uL [place] # (Auto) 400 (0-900) /uL Eos # (Auto) 0 (0-450) /uL Baso # (Auto) 0 (0-100) /uL Sodium 137 (137-145) mmol/L Potassium 3.5 (3.4-5.1) mmol/L Chloride 93 L (98-107) mmol/L Carbon Dioxide 27 (22-32) mmol/L BUN 11 (7-17) mg/dL Creatinine 0.79 (0.52-1.04) mg/dL Estimated GFR > 60 (>60) mL/min BUN/Creatinine Ratio 13.9 (6-22) Glucose 125 H (70-100) mg/dL Calcium 10.1 (8.4-10.2) mg/dL Total Bilirubin 0.8 (0.2-1.3) mg/dL AST 141 H (14-36) IU/L ALT 110 H (<35) IU/L Alkaline Phosphatase 117 (38-126) U/L Total Protein 9.2 H (6.3-8.2) g/dL Albumin 5.0 (3.5-5.0) g/dL Globulin 4.2 H (1.7-4.1) g/dL Albumin/Globulin Ratio 1.2 (1.0-2.8) Lipase 98 (23-300) U/L Urine RBC (0-5/HPF) Urine WBC (0-5/HPF) Ur Squamous Epith Cells (0-5/HPF) Amorphous Sediment Urine Bacteria (None) Ur Culture Indicated? SARS-CoV-2 (PCR) Positive H (Negative) 11/21/22 Range/Units 16:31 WBC (4.5-11.0) X10^3/uL RBC (4.0-5.2) X10^6/uL Hgb (12.0-16.0) g/dL Hct (36-46) % MCV (80-100) fL MCH (26-34) PG MCHC (30-36) % RDW (11.6-14.8) % Plt Count (150-400) X10^3/uL Neut % (Auto) (50-75) % Lymph % (Auto) (25-40) % [place] % (Auto) (3-14) % Eos % (Auto) (2-4) % Baso % (Auto) (0-2) % Neut # (Auto) (9269-0596) /uL Lymph # (Auto) (6055-8456) /uL [place] # (Auto) (0-900) /uL Eos # (Auto) (0-450) /uL Baso # (Auto) (0-100) /uL Sodium (137-145) mmol/L Potassium (3.4-5.1) mmol/L Chloride (98-107) mmol/L Carbon Dioxide (22-32) mmol/L BUN (7-17) mg/dL Creatinine (0.52-1.04) mg/dL Estimated GFR (>60) mL/min BUN/Creatinine Ratio (6-22) Glucose (70-100) mg/dL Calcium (8.4-10.2) mg/dL Total Bilirubin (0.2-1.3) mg/dL AST (14-36) IU/L ALT (<35) IU/L Alkaline Phosphatase (38-126) U/L Total Protein (6.3-8.2) g/dL Albumin (3.5-5.0) g/dL Globulin (1.7-4.1) g/dL Albumin/Globulin Ratio (1.0-2.8) Lipase (23-300) U/L Urine RBC None seen (0-5/HPF) Urine WBC 0-1/hpf (0-5/HPF) Ur Squamous Epith Cells 5-10 /hpf H (0-5/HPF) Amorphous Sediment 2+ Urine Bacteria None seen (None) Ur Culture Indicated? Cult not indicated SARS-CoV-2 (PCR) (Negative) Point of Care Testing Test Results Negative Urine Dip Bedside Urine Glucose Negative Bedside Urine Bilirubin - Negative Bedside Urine Ketone + 15 Urine Specific [place] 1.005 Bedside Urine Occult Blood - Negative Bedside Urine pH 8.5 Bedside Urine Protein ++ 100 Bedside Urine Urobilinogen - Negative Bedside Urine Nitrite - Negative Bedside Urine Leukocytes - Negative Esterase MDM Narrative Medical decision making narrative: Labs unremarkable. No respiratory distress. Received Zofran and fluids. This did improve her symptoms a small amount. No indication for antibiotics. She is COVID positive. Will discharge home with prescription for nausea medication. She was given return precautions. She expressed understanding and agreement. Discharge Plan Departure Patient Disposition: Home Clinical Impression: COVID-19, Nausea Instructions: Nausea and Vomiting-Adult, DI for COVID-19 (Suspected or Confirmed ) Activity Restrictions/Additional Instructions: You can take Tylenol for any fevers or body aches. He is the nausea medication as needed. Be sure to increase your fluid intake. Follow all current CDC guidelines with regard to quarantine given your positive COVID-19 status. Return to the emergency department for any new symptoms. Prescriptions: No Action bupropion HCl 300 mg tablet extended release 24 hr 300 mg PO QAM Qty: 90 3RF Rx Instructions: Take 1 tab each morning for depression and anxiety naltrexone microspheres 380 mg suspension,extended rel recon 380 mg IM Q4W Qty: 1 3RF Rx Instructions: Inject monthly for assistance with alcohol cessation. ondansetron 4 mg tablet,disintegrating 4 mg PO Q8H PRN (Reason: nausea and vomiting) Qty: 20 0RF Rx Instructions: Dissolve 1 tab under the tongue every 8 hours as needed gabapentin 100 mg capsule 100 mg PO BEDTIME Qty: 180 3RF Rx Instructions: Take 1 cap at bedtime daily, may increase by 100mg nightly to max dosing 300mg. valacyclovir 1 gram tablet 1,000 mg PO BID Qty: 20 3RF Rx Instructions: Take 1 tab twice daily for breakouts x10 days gabapentin 300 mg capsule 300 mg PO TID PRN (Reason: anxiety) Qty: 90 3RF Rx Instructions: Take 1 capsule three times per day for anxiety bupropion HCl 150 mg tablet extended release 24 hr 150 mg PO QAM Qty: 30 3RF Rx Instructions: Take 1 tab in addition to 300mg tabs, for total 450mg/day hydroxyzine HCl 25 mg tablet 25 mg PO QID PRN (Reason: anxiety) Qty: 120 3RF Rx Instructions: Take 1 tab up to 4x/day as needed for anxiety trazodone 50 mg tablet 100 mg PO BEDTIME PRN (Reason: insomnia) Qty: 60 3RF Rx Instructions: Take 1-2 tabs at bedtime daily for insomnia Referrals: Gloria Allen ARNP [Primary Care Provider] - Stand Alone Forms: Patient Portal/API
[2022-11-21] MEDS: SODIUM CHLORIDE 0.9% 1,000 ML 1000 ML IV (19:27)
[2022-11-21] MEDS: ONDANSETRON 4 MG ODT PREPACK 1 BOTTLE MISC (20:48)
== END 2022-11-21 20:50 | disposition home or self-care (01) ==
PROVIDERS: Emergency Medicine; Emergency Provider Emergency Medicine; PCP Nurse Practitioner
DX: U07.1 COVID-19 (principal); R11.0 Nausea
CPT/HCPCS: 36415; 80053; 81003; 81015; 81025; 83690; 85025; 87635; 96361; 96374; 96376; 99284; C9803; J2405

== ENCOUNTER 2022-12-10 08:41 | Emergency (ER) | payer OTHER, SELFPAY ==
[2022-12-10 09:06] VITALS: BP 128/87; PULSE 97; RESP 18; TEMP 36.9; O2SAT 99
--- NOTE | 2022-12-10 09:14 | ED_ITS ---
HPI - General Adult General Chief complaint: Skin/Abscess/Foreign Body Stated complaint: thinks pill is stuck in windpipe Time Seen by Provider: 12/10/22 08:51 History of Present Illness HPI narrative: 37-year-old female nonsmoker with history of insomnia and depression as well as alcohol use disorder presents with a chief complaint of concern of foreign body in her ?wind pipe?. She states that she took a hydrocodone today and it got stuck in her throat and she felt like she could not swallow briefly but since then has been eating and drinking without difficulty. She denies any pain, nausea or vomiting. At no point has she had any trouble breathing or coughing nor any chest pain. Related Data Home Medications Medication Instructions Recorded Confirmed No Known Home Medications 11/28/22 11/28/22 Allergies Allergy/AdvReac Type Severity Reaction Status Date / Time morphine [MORPHINE] AdvReac Mild ITCHING Verified 12/10/22 09:06 Review of Systems Review of Systems Narrative: GENERAL: Denies chills, fatigue, malaise, fever, sweats. HEENT: See HPI RESPIRATORY: Denies dyspnea, cough, wheezing, hemoptysis, sputum. CARDIOVASCULAR: Denies chest pain, palpitations, orthopnea, edema, GASTROINTESTINAL: See HPI : Denies dysuria, frequency, incontinence, hematuria, urinary retention. MUSCULOSKELETAL: denies weakness, joint pain, or bony pain SKIN: Denies rash, skin lesions, or other NEUROLOGIC: Denies weakness, headache, numbness, change in speech, confusion, seizures, incoordination. PSYCHIATRIC: No concerning psychosocial issues. 12 point review of systems is negative except for those stated above Patient History Medical History Acute bacterial sinusitis Alcohol use disorder, mild, in early remission Anorexia Anxiety Breast lump Bulimia Chronic pain of left knee Chronic right maxillary sinusitis Costochondral chest pain Dental caries Depression Depression with anxiety Dermoid cyst of left ovary Epistaxis Fatigue Fibroadenoma Ganglion cyst Generalized anxiety disorder Gingival erythema Hair loss Hallux valgus Headache Insomnia Insomnia Insomnia related to another mental disorder Leukopenia Menstrual pain Muscle spasms of neck Nasal septal deviation Normocytic anemia Palpitations Panic disorder without agoraphobia Phantosmia Vision disorder Vitamin D deficiency Surgical History Anesthesia History of removal of ovarian cyst (~09/2017) Family History Mother Hypertension Grandfather Heart disease Stroke Family/Other Heart disease Diabetes mellitus Stroke Family/Other Cancer Grandmother Alzheimer's disease Grandfather Diabetes mellitus Heart disease Stroke Social History marital status: household members: spouse occupational status: employed Smoking Status: Never smoker alcohol intake: current substance use type: does not use Smoking Status: Never smoker alcohol intake frequency: a few times a month Substance Use Type: marijuana Exam Narrative Exam Narrative: GENERAL: [37] year old patient appears stated age. Well-developed patient, in no obvious distress. Resting comfortably HEAD: Atraumatic. Normocephalic. EYES: Pupils equal round and reactive. Extraocular motions intact. No scleral icterus. No injection or drainage. ENT: Nose without bleeding, purulent drainage. Throat without erythema, tonsillar hypertrophy or exudate. Airway patent. Managing secretions NECK: Trachea midline. Non tender CARDIOVASCULAR: Regular rate and rhythm without murmurs, gallops, or rubs. RESPIRATORY: Clear to auscultation. Breath sounds equal bilaterally. No wheezes, rales, or rhonchi. GASTROINTESTINAL: Abdomen soft, non-tender, nondistended. EXTREMITIES: No edema or joint tenderness. BACK: Nontender without deformity or crepitance. No flank tenderness. NEURO: AOx3. SKIN: No rash or erythema of visible areas Initial Vital Signs Initial Vital Signs: Vital Signs Temperature 98.4 F 12/10/22 09:06 Pulse Rate 97 H 12/10/22 09:06 Respiratory Rate 18 12/10/22 09:06 Blood Pressure 128/87 12/10/22 09:06 Pulse Oximetry 99 12/10/22 09:06 Oxygen Delivery Method 12/10/22 09:06 Course Reevaluation(s) Reevaluation #1: Patient is able to eat and drink without difficulty Vital Signs Vital signs: Vital Signs - 8 hr 12/10/22 09:06 Temperature 98.4 F Pulse Rate 97 H Respiratory Rate 18 Blood Pressure 128/87 Pulse Oximetry 99 Oxygen Delivery Method Room Air Medical Decision Making MDM Narrative Medical decision making narrative: [37-year-old female with concern of esophageal or tracheal foreign body] Multiple etiologies for patient's symptoms considered including, but not limited to: [Esophageal foreign body, tracheal foreign body versus other] Prior Charts reviewed: Prior ED visits Labs reviewed and interpreted by myself: None indicated Imaging reviewed: None indicated Consultations: None indicated Patient asymptomatic for duration of visit, no cough or trouble breathing, no chest pain. Able to drink without difficulty, controlling secretions, no indic ation that esophageal or tracheal foreign body is present Findings and discharge diagnosis discussed with patient/family followed by verbalization of understanding Return precautions discussed with patient/family whom verbalize understanding of diagnosis and plan Discharge Plan Departure Patient Disposition: Home Clinical Impression: Esophageal foreign body Instructions: DI for Foreign Body, Swallowed-Adult Activity Restrictions/Additional Instructions: *You have been diagnosed with [possible esophageal foreign body which has subsequently cleared. As we discussed your history and physical exam are very reassuring] *What to do: *Please continue to take your regular medications as directed. *Please follow up with your primary care provider in 2-3 days, call for an appointment. Let them know you were seen in the Emergency Department and that we ask that you be seen in follow up. We will electronically transmit a record of today's note if your PCP is in our system *If you do not have a primary care provider please contact the [facility] Resource line at [phone]. They will ask some questions about your medical history and help get you set up with a doctor in the community. *Return to Emergency Department if you should have any new, worsening or conc erning symptoms, such as [fever greater than 101 F, shaking chills, worsening pain, persistent vomiting or other bothersome symptoms] Prescriptions: No Action No Known Home Medications Referrals: Gloria Allen ARNP [Primary Care Provider] - Stand Alone Forms: Patient Portal/API
[2022-12-10 09:35] VITALS: BP 121/80; PULSE 86; RESP 14; O2SAT 99
== END 2022-12-10 09:36 | disposition home or self-care (01) ==
PROVIDERS: Emergency Provider Emergency Medicine; PCP Nurse Practitioner
DX: T18.108A Unspecified foreign body in esophagus causing other injury, initial encounter (principal)
CPT/HCPCS: 99281

== ENCOUNTER 2024-08-30 10:00 | Emergency (ER) | payer OTHER, MEDICAID, SELFPAY ==
[2024-08-30 10:22] VITALS: BP 126/76; PULSE 89; RESP 16; TEMP 36.9; O2SAT 95; BMI 22.1
--- NOTE | 2024-08-30 11:40 | ED_ITS ---
HPI - Nausea/Vomiting/Diarrhea <Abundio Rose PA-C - Last Filed: 08/30/24 17:48> General Chief complaint: Nausea/Vomiting/Diarrhea Stated complaint: nausea Time Seen by Provider: 08/30/24 11:30 History of Present Illness HPI Narrative: 38-year-old female with past medical history alcohol disorder in remission, anxiety, depression presents to the ED with 1 week of nausea and sporadic vomiting. Patient states that she started buspirone for anxiety on August 02. Patient states that a week or so after starting the medication, she started experiencing nausea and sporadic vomiting. Patient denies fever, chills, chest pain, shortness of breath, abdominal pain. Patient is here in the ED to obtain a note to clear her to go back to work. 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 Patient is also slated to see her new provider LEROY Serrano next week. Related Data Home Medications Medication Instructions Recorded Confirmed aripiprazole 2 mg tablet 4 mg PO BEDTIME 07/29/24 07/29/24 Previous Rx's Medication Instructions Recorded buspirone 5 mg tablet See Rx Instructions .Route 08/02/24 .COMPLEX #90 tabs trazodone 100 mg tablet 100 mg PO BEDTIME PRN sleep #90 08/02/24 tabs sertraline 100 mg tablet 150 mg (1.5 x 100 mg) PO DAILY #90 08/04/24 tabs ondansetron 4 mg disintegrating 4 mg PO Q8H PRN nausea and 08/30/24 tablet vomiting #20 tabs Allergies Allergy/AdvReac Type Severity Reaction Status Date / Time morphine [MORPHINE] AdvReac Mild ITCHING Verified 08/02/24 15:17 Review of Systems <Abundio Rose PA-C - Last Filed: 08/30/24 17:48> Constitutional Constitutional: Denies chills, Denies fatigue, Denies fever(s), Denies frequent falls, Denies lethargy and Denies weakness Eyes Eyes: Denies change in vision, Denies eye discharge, Denies irritation and Denies loss of vision ENT Ears, Nose, Mouth, and Throat: Denies change in voice, Denies dizziness, Denies neck pain, Denies sore throat and Denies throat swelling Cardiovascular Cardiovascular: Denies chest pain, Denies irregular heart rhythm, Denies lightheadedness, Denies palpitations, Denies dyspnea, Denies dyspnea on exertion and Denies orthopnea Respiratory Respiratory: Denies cough, Denies dyspnea, Denies dyspnea on exertion and Denies wheezing Gastrointestinal Gastrointestinal: Denies abdominal pain, Denies change in bowel habits, Denies diarrhea, Reports nausea and Reports vomiting Musculoskeletal Musculoskeletal: Denies neck pain and Denies numbness Integumentary/Breasts Skin/Breast: Denies pruritus, Denies erythema, Denies rash and Denies wounds Neurologic Neurologic: Denies behavioral changes, Denies confusion, Denies dizziness, Denies frequent falls, Denies loss of vision, Denies numbness and Denies weakness Psychiatric Psychiatric: Denies anxiety, Denies behavioral changes, Denies confusion, Denies depression, Denies homicidal ideation and Denies suicidal ideation Endocrine Endocrine: Denies fatigue, Denies flushing and Denies palpitations Hematologic/Lymphatic Hematologic/Lymphatic: Denies easy bruising Allergic/Immunologic Allergic/Immunologic: Denies urticaria, Denies throat swelling and Denies wheezing Patient History <Abundio Rose PA-C - Last Filed: 08/30/24 17:48> Medical History Insomnia Depression Insomnia Alcohol use disorder, mild, in early remission Nasal septal deviation Chronic right maxillary sinusitis Vision disorder Headache Muscle spasms of neck Ganglion cyst Menstrual pain Acute bacterial sinusitis Dermoid cyst of left ovary Breast lump Epistaxis Dental caries Gingival erythema Phantosmia Leukopenia Normocytic anemia Fatigue Hair loss Vitamin D deficiency Generalized anxiety disorder Insomnia related to another mental disorder Panic disorder without agoraphobia Fibroadenoma Chronic pain of left knee Hallux valgus Costochondral chest pain Depression with anxiety Bulimia Anorexia Palpitations Anxiety Surgical History Anesthesia History of removal of ovarian cyst (~09/2017) Family History Mother Hypertension Grandfather Heart disease Stroke Family/Other Heart disease Diabetes mellitus Stroke Family/Other Cancer Grandmother Alzheimer's disease Grandfather Diabetes mellitus Heart disease Stroke Social History marital status: household members: spouse occupational status: employed Smoking Status: Smoker, status unknown alcohol intake: current substance use type: does not use Smoking Status: Smoker, status unknown alcohol intake frequency: a few times a month Alcohol type: wine Substance Use Type: marijuana Exam <Abundio Rose PA-C - Last Filed: 08/30/24 17:48> Narrative Exam Narrative: Const General:?cooperative, healthy appearing and comfortable [facility] Head:?normal to inspection Ears:?hearing grossly normal bilaterally Nose:?external nose normal Face and sinus:?normal facial exam and sinuses nontender Mouth:?oral mucosae normal Throat:?posterior oropharynx normal Eyes General:?appearance normal, both eyes and all related structures Neck Neck:?normal visual inspection and no lymphadenopathy noted Resp Effort & Inspection:?normal respiratory effort Auscultation:?clear to auscultation bilaterally Cardio Rate:?regular rate Rhythm:?regular rhythm GI Abdomen is soft, nondistended, nontender to palpation Neuro General:?patient alert, patient awake and patient oriented x3 Initial Vital Signs Initial Vital Signs: Vital Signs Temperature 98.5 F 08/30/24 10:22 Pulse Rate 89 08/30/24 10:22 Respiratory Rate 16 08/30/24 10:22 Blood Pressure 126/76 08/30/24 10:22 Pulse Oximetry 95 08/30/24 10:22 Oxygen Delivery Method Room Air 08/30/24 10:22 <Sara Waddell DO - Last Filed: 09/04/24 18:01> Initial Vital Signs Initial Vital Signs: Vital Signs Temperature 98.5 F 08/30/24 10:22 Pulse Rate 89 08/30/24 10:22 Respiratory Rate 16 08/30/24 10:22 Blood Pressure 126/76 08/30/24 10:22 Pulse Oximetry 95 08/30/24 10:22 Oxygen Delivery Method Room Air 08/30/24 10:22 Course <Abundio Rose PA-C - Last Filed: 08/30/24 17:48> Vital Signs Vital signs: Vital Signs - 8 hr 08/30/24 10:22 Temperature 98.5 F Pulse Rate 89 Respiratory Rate 16 Blood Pressure 126/76 Pulse Oximetry 95 Oxygen Delivery Method Room Air <Sara Waddell DO - Last Filed: 09/04/24 18:01> Vital Signs Vital signs: Vital Signs - 8 hr 08/30/24 10:22 Temperature 98.5 F Pulse Rate 89 Respiratory Rate 16 Blood Pressure 126/76 Pulse Oximetry 95 Oxygen Delivery Method Room Air MDM - Nausea/Vomiting/Diarrhea <Abundio Rose PA-C - Last Filed: 08/30/24 17:48> [facility] Narrative Medical decision making narrative: 38-year-old female with past medical history alcohol disorder in remission, anxiety, depression presents to the ED with 1 week of nausea and sporadic vomiting. Patient's symptoms are most likely due to an adverse effect of the buspirone. It is reassuring that patient is still able to keep down fluids and solids. Prescribed Zofran for nausea control for the next few days until patient is able to see her PCP. Patient does have a appointment with her PCP in a week. Cleared patient to go back to work. ED return precautions were discussed with patient. Patient verbalized understanding. Medical records reviewed: Yes Discharge Plan Departure Patient Disposition: Home Clinical Impression: Nausea Instructions: DI for Nausea -- Adult Activity Restrictions/Additional Instructions: Evaluated in the ED today for nausea and vomiting associated with starting BuSpar. It is reassuring that you have an appointment with your primary care doctor in a week to re-evaluate the medication. You have been prescribed Zofran for nausea until you were able to see your doctor. Please continue to stay well hydrated. Return to the ED if you have worsening symptoms. Prescriptions: New ondansetron 4 mg tablet,disintegrating 4 mg PO Q8H PRN (Reason: nausea and vomiting) Qty: 20 0RF No Action aripiprazole 2 mg tablet 4 mg PO BEDTIME sertraline 100 mg tablet 150 mg PO DAILY Qty: 90 3RF trazodone 100 mg tablet 100 mg PO BEDTIME PRN (Reason: sleep) Qty: 90 3RF buspirone 5 mg tablet See Rx Instructions .ROUTE .COMPLEX MDD 3 tabs/day Qty: 90 3RF Rx Instructions: Take 1 tab at bedtime daily, may increase to twice day after 3-5 days as tolerated. After 1 week, increase to 3x/day thereafter; Referrals: Gloria Allen ARNP [Primary Care Provider] - Stand Alone Forms: Patient Portal/API, Work Release Note ED Sign-out <Sara Waddell DO - Last Filed: 09/04/24 18:01> Cosign ED Attending Cosignature Attestation: I was available for consultation.
== END 2024-08-30 11:49 | disposition home or self-care (01) ==
PROVIDERS: Emergency Provider Student in an Organized Health Care Education/Training Program; PCP Nurse Practitioner
DX: R11.2 Nausea with vomiting, unspecified (principal)
CPT/HCPCS: 99281

== ENCOUNTER → 2025-08-26 08:48 | Outpatient (CLI) | payer OTHER, SELFPAY ==
[2025-08-26 14:54] LABS: Urine N gonorrhoeae NOT DETECTED
[2025-08-26 15:02] LABS: Urine Chlamydia NOT DETECTED
== END ==
LOC: LAB 08:49
PROVIDERS: PCP Registered Nurse Diabetes Educator; Visit Provider Obstetrics & Gynecology
DX: Z34.91 Encounter for supervision of normal pregnancy, unspecified, first trimester (principal)
CPT/HCPCS: 87491; 87591

== ENCOUNTER → 2025-09-09 12:17 | Outpatient (CLI) | payer OTHER, SELFPAY ==
[2025-09-09 13:23] LABS: Natera Collection Specimen Collected
[2025-09-09 13:33] LABS: Add Manual Diff / Slide Review NO; Hematocrit 36.6 % (36-46); Hemoglobin 12.6 g/dL (12.0-16.0); Lymphocytes Absolute Auto 1300 /uL (1100-4500); Mean Corpuscular HGB Conc 34.4 % (30-36); Mean Corpuscular Hemoglobin 31.2 PG (26-34); Mean Corpuscular Volume 90.8 fL (80-100); Platelet Count 243 X10^3/uL (150-400)
[2025-09-09 14:04] LABS: HEMOLYSIS < 15 (0-50); Iron 148 ug/dL (37-170)
[2025-09-09 14:07] LABS: Alanine Aminotransferase 12 IU/L (<35); Albumin 4.4 g/dL (3.5-5.0); Albumin Globulin Ratio 1.6 (1.0-2.8); Alkaline Phosphatase 48 U/L (38-126); Blood Urea Nitrogen 10 mg/dL (7-17); Calcium 9.8 mg/dL (8.4-10.2); Carbon Dioxide 22 mmol/L (22-32); Chloride 102 mmol/L (98-107); Estimated Glomerular Filt Rate > 60 mL/min (>60); Globulin 2.8 g/dL (1.7-4.1); Glucose 84 mg/dL (70-99); HEMOLYSIS < 15 (0-50); Potassium 4.0 mmol/L (3.4-5.1); Sodium 134 mmol/L (137-145); Total Protein 7.2 g/dL (6.3-8.2)
[2025-09-09 14:16] LABS: Percent Iron Saturation 39 % (15-50); Total Iron Binding Capacity 381 ug/dL (265-497); Transferrin 317 mg/dL (206-381)
[2025-09-09 14:41] LABS: Ferritin 17 ng/mL (6-137)
[2025-09-10 17:36] LABS: Hepatitis B Surface Antigen NEGATIVE s/c (NEGATIVE)
[2025-09-10 18:21] LABS: HIV 1 & 2 Ab/Ag 4th Gen Combo NEGATIVE (NEGATIVE); Hep C Virus Ab w/Reflex Quant NEGATIVE s/c (NEGATIVE)
== END ==
PROVIDERS: PCP Registered Nurse Diabetes Educator; Referring Provider Registered Nurse Diabetes Educator; Visit Provider Obstetrics & Gynecology
DX: O09.511 Supervision of elderly primigravida, first trimester (principal); O09.899 Supervision of other high risk pregnancies, unspecified trimester; D64.9 Anemia, unspecified; F50.20 Bulimia nervosa, unspecified; R63.0 Anorexia
CPT/HCPCS: 36415; 80053; 80055; 82728; 83540; 83550; 86787; 86803; 86850; 86900; 86901; 87086; 87389

== ENCOUNTER → 2025-11-04 09:31 | Outpatient (CLI) | payer OTHER, SELFPAY | PROVIDERS: PCP Registered Nurse Diabetes Educator; Referring Provider Obstetrics & Gynecology; Visit Provider Obstetrics & Gynecology | DX: Z34.02 Encounter for supervision of normal first pregnancy, second trimester (principal) | CPT/HCPCS: 36415; 82105 ==

== ENCOUNTER → 2025-11-16 13:33 | Outpatient (CLI) | payer OTHER, SELFPAY ==
--- NOTE | 2025-11-16 13:36 | DI.US.S_ITS ---
PROCEDURE: US OB >= 14 WEEKS FETUS INDICATIONS: 20 weeks anatomy scan OUTSIDE/PRIOR DATING DATA: Last menstrual period (LMP): 07/23/25. LMP-based estimated date of delivery (SHARLENE): 04/02/26. First dating scan (date and location): 08/26/25. Estimated date of delivery (SHARLENE) from first dating scan: 04/01/26. The calculations are made using the working SHARLENE of 04/02/26. TECHNIQUE: Real-time scanning was performed of the fetus, with image documentation and biometric measurements. Endovaginal scanning: No COMPARISON: None. FINDINGS: General: A single living intrauterine gestation is present. Presentation: Breech. Placenta: Placental position is posterior , without previa. Amniotic fluid index: 17.9 cm, normal range is 5-24 cm. Single deepest vertical pocket is 5.4 cm. heart rate: 145 beats per minute. Maternal cervical canal: Closed and 4.7 cm long. Normal lower limit is 2.5 cm. biometrics: Biparietal diameter: 5.1 cm 21 weeks three days Head circumference: 17.9 cm 20 weeks two days Abdominal circumference: 16.0 cm 21 weeks 0 days Femur length: 3.3 cm 20 weeks one day Clinically estimated gestational age: 20 weeks three days Composite gestational age from present scan: 20 weeks five days Estimated weight and percentile: 368 g 58th percentile Anatomic survey: Neuro: Ventricles are non-dilated at less than 10 mm. Cisterna magna is normal at 3-11 mm. Cerebellum is normal in size and morphology. Nuchal skin fold: Normal at less than 6 mm between 14-21 weeks gestational age. Face: Nose and lips, facial profile are normal. Spine: No evidence for spina bifida. Heart: 4-chambered heart is present, with normal ventricular outflow tracts. Diaphragm: Diaphragm is intact. Stomach: Left-sided stomach is present. Kidneys: No hydronephrosis. Normal is less than 5 mm in 2nd trimester, less than 7 mm in 3rd trimester. Cord: 3-vessel cord has orthotopic insertion. Bladder: Normal in size. Extremities: All 4 extremities identified. IMPRESSION: Single living intrauterine with estimated weight at the 58th percentile. Composite gestational age in good agreement with the clinically expected age. Paragraphs symmetric growth and normal anatomy. Closed cervix and normal amniotic fluid volume. We strive to produce accurate, complete, and clear reports of imaging services. To assist us in improving patient care, this report was composed using standard report templates and voice recognition software. Therefore, it may contain abnormal punctuation, insertions and/or omissions. Occasional wrong-word or sound-alike substitutions may occur. Though we review the report and make efforts to correct it, we do recommend that the report be read carefully in proper context to recognize any text inaccuracies. Dictated by: Kathy Blank M.D. on 11/18/2025 at 9:08 Approved by: Kathy Blank M.D. on 11/18/2025 at 9:36
== END ==
LOC: US 13:34
PROVIDERS: PCP Registered Nurse Diabetes Educator; Referring Provider Obstetrics & Gynecology; Visit Provider Obstetrics & Gynecology
DX: Z34.02 Encounter for supervision of normal first pregnancy, second trimester (principal); Z3A.20 20 weeks gestation of pregnancy
CPT/HCPCS: 76811